=== PATIENT | female | born 1955 | race Caucasian/White ===

== ENCOUNTER 2017-01-23 16:09 | Emergency (ER) | payer MEDICARE, OTHER ==
[~2017-01-23] VITALS: Ht 157.5 cm; Wt 65.8 kg
[~2017-01-23 16:09] MED LIST: ALPR0.5T3 PO; ALPR1TAB2 PO; AMOX500C2 PO; ATEN25TA PO; CLIN300C3 PO; CRUT1EAC16 MC; CYCL10TA9 PO; DULO60CA6 PO; NITR-65 PO; ONDAN4ODT PO; PNT40TEC PO; PROM25SU10 PR; TRAM50TA2 PO
--- NOTE | 2017-01-23 17:19 | Diagnostic Imaging Report ---
Three views of the right shoulder. INDICATION: Fall. FINDINGS: No fracture, dislocation or radiopaque foreign body. Mild degenerative changes at the acromioclavicular joint with joint space narrowing seen. No significant osteophyte formation. The glenohumeral joints appear unremarkable. IMPRESSION: No acute process. Dictated by: Dictated on workstation # [id number]
--- NOTE | 2017-01-23 17:24 | ED Fall/Injury ---
General Chief Complaint: Trauma-Non Activation Stated Complaint: FALL/HEAD AND SHOULDER PAIN Nursing Triage Note: AMBULATED TO ROOM 10 WITH COMPLAINTS OF FALLING DOWN X5 STAIRS ON SUNDAY HITTING HER HEAD EACH TIME. DENIES LOC. COMPLAINS OF HEAD, NECK, AND RIGHT SHOULDER PAIN. Source: patient Exam Limitations: no limitations History of Present Illness Time seen by provider: 17:10 Initial Comments Here with report of falling down 5 stairs a few days back. Denies loss of consciousness but was dazed. Also complains of right shoulder pain. Denies other injuries. States that she didn't present then because she has been taking care of the rest of her family. Today she just wanted to make sure things were okay and her family member was also here in the ER. Complains of neck pain laterally bilaterally and stiffness. Location Injury Occurred: [facility] Occurred: last week Severity: moderate Injuries/Pain Location: head, neck Loss of Consciousness: dazed Modifying Factors: Worse With Movement, Improves With Pain Medication ( ibuprofen) Associated Symptoms (Fall): No Chest Pain, No Confusion, Headache, Muscle Spasms, No Nausea/Vomiting, Neck Pain, No Shortness of Air, No Trouble Walking, No Vision Changes Allergies and Home Medications Allergies Coded Allergies: Codeine (Unverified Allergy, 12/21/10) Home Medications Alprazolam 1 Mg Tablet, 1 MG PO TID, (Reported) Atenolol 25 Mg Tablet, 25 MG PO DAILY for 30 Days, (Reported) Cyclobenzaprine HCl 10 Mg Tablet, 10 MG PO Q8H, #15 Prescribed by: ALY DILLON on 05/16/16 1855 Cyclobenzaprine HCl 10 Mg Tablet, 10 MG PO Q8H PRN for SPASMS, #15 Ref 0 Prescribed by: CUAUHTEMOC YAN on 01/23/17 1736 Duloxetine Hcl 60 Mg Capsule.dr, 1 EACH PO DAILY, Ref 0 (Reported) Constitutional: see HPI, No chills, No fever Eyes: No Symptoms Reported Ears, Nose, Mouth, Throat: denies ear pain, nose discharge (with nasal congestion) Respiratory: no symptoms reported, No short of breath, No wheezing Cardiovascular: No chest pain Gastrointestinal: No nausea, No vomiting Musculoskeletal: see HPI, muscle pain, neck pain Skin: no symptoms reported Psychiatric/Neurological: No Symptoms Reported Past Fpnensp-Cbcbub-Nnsfme Hx Patient Social History Alcohol Use: Denies Use Recreational Drug Use: No Smoking Status: Current Everyday Smoker Recent Foreign Travel: No Contact w/Someone Who Travel: No Recent Infectious Disease Expo: No Recent Hopitalizations: No Surgeries HX Surgeries: Yes Surgeries: Appendectomy, Tubal Ligation Respiratory Hx Respiratory Disorders: No Cardiovascular Hx Cardiac Disorders: Yes Cardiac Disorders: Hypertension Neurological Hx Neurological Disorders: No Reproductive System Hx Reproductive Disorders: No Genitourinary Hx Genitourinary Disorders: No Gastrointestinal Hx Gastrointestinal Disorders: No Musculoskeletal Hx Musculoskeletal Disorders: Yes (INTERMITTENT CHRONIC NECK AND BACK PAIN ) Musculoskeletal Disorders: Chronic Back Pain Endocrine Hx Endocrine Disorders: No HEENT HX ENT Disorders: No Cancer Hx Cancer: No Psychosocial Hx Psychiatric Problems: Yes Behavioral Health Disorders: Anxiety, PTSD, Depression Integumentary HX Skin/Integumentary Disorder: No Blood Transfusions Hx Blood Disorders: No Reviewed Nursing Assessment Reviewed/Agree w Nursing PMH: Yes Physical Exam Vital Signs Vital Sign - Last 12Hours 01/23/17 16:40 Temp 98.7 Pulse 74 Resp 16 B/P (MAP) 173/101 Pulse Ox 96 O2 Delivery Room Air Capillary Refill : Less Than 3 Seconds General Appearance: WD/WN, no apparent distress HEENT: PERRL/EOMI, pharynx normal, other (moderate nasal congestion) Neck: supple, tender lateral, No tender midline Cardiovascular: regular rate, rhythm, no murmur Respiratory: lungs clear, normal breath sounds Gastrointestinal: non tender, soft Back: normal inspection, no CVA tenderness, no vertebral tenderness Extremities: non-tender, normal inspection Neurologic/Psychiatric: alert, oriented x 3 Skin: normal color, warm/dry Chelita Coma Score Best Eye Response: (4) Open Spontaneously Best Verbal Response: (5) Oriented Best Motor Response: (6) Obeys Commands Progress/Results/Core Measures Results/Orders My Orders Orders - CUAUHTEMOC YAN MD Ct Head/Cervical Spine Wo (01/23/17 16:45) Shoulder, Right, 3 Views (01/23/17 16:45) Vital Signs/I&O Vital Sign - Last 12Hours 01/23/17 01/23/17 16:40 18:35 Temp 98.7 Pulse 74 85 Resp 16 18 B/P (MAP) 173/101 Pulse Ox 96 98 O2 Delivery Room Air Blood Pressure Mean: 125 Progress Note : Progress Note Seen and evaluated. X-ray right shoulder and CT head and neck ordered. Monitor patient. Diagnostic Imaging Diagonstic Imaging: Xray Plain Films/CT/US/NM/MRI: other (shoulder) Comments VIA [facility]. [place], [place] NAME: CANDI BRUNNER [facility] REC#: [id number] PT STATUS: REG ER : 1955 PHYSICIAN: CUAUHTEMOC YAN MD ADMIT DATE: 01/23/17/ER Draft Date of Exam:01/23/17 SHOULDER, RIGHT, 3 VIEWS Three views of the right shoulder. INDICATION: Fall. FINDINGS: No fracture, dislocation or radiopaque foreign body. Mild degenerative changes at the acromioclavicular joint with joint space narrowing seen. No significant osteophyte formation. The glenohumeral joints appear unremarkable. IMPRESSION: No acute process. Dictated on workstation # [id number] Dict: 01/23/17 1707 Trans: 01/23/17 1719 MAYELA [id number] Interpreted by: ZANDER KAY MD Electronically signed by: Diagonstic Imaging: CT Plain Films/CT/US/NM/MRI: c-spine, head Comments NAME: CANDI BRUNNER [facility] REC#: [id number] PT STATUS: [facility] ER : 1955 PHYSICIAN: CUAUHTEMOC YAN MD ADMIT DATE: 01/23/17/ER Signed Date of Exam: 01/23/17 CT HEAD/CERVICAL SPINE WO PROCEDURE: CT head and CT cervical spine without contrast. TECHNIQUE: Multiple contiguous axial images were obtained through the brain and cervical spine without the use of intravenous contrast. Sagittal and coronal reformations through the cervical spine were then performed. INDICATION: Status post fall down steps. Hit posterior aspect of head and neck, now with head and neck pain. Injury one week prior. CORRELATION STUDY: CT head 06/22/2014 FINDINGS: CT HEAD: The ventricles and sulci are unremarkable. Normal perales-white differentiation. No midline shift or mass-effect. No edema pattern. No acute intracranial hemorrhage. The bony calvarium is intact. There is rather significant mucosal thickening of the bilateral maxillary sinuses, left greater than right. Mucosal thickening of the sphenoid sinuses and ethmoid air cells, as well. CT CERVICAL SPINE: Reformatted images with relatively normal alignment. Vertebral body heights are maintained. Posterior elements are intact and in normal alignment. Odontoid intact. There is a moderate asymmetric disc space narrowing at C5-C6 level. Prominent endplate spurring results and osseous narrowing in the neuroforamina. Slightly lesser severe findings at C4-C5 level, as well. Remaining disc spaces minimally narrowed but otherwise unremarkable. There is note made of incomplete closure of the posterior C1 ring, likely developmental/congenital. Well-corticated lucencies proximal lamina, bilaterally at C2, likely of no significance. Paraspinal soft tissues are unremarkable. The lung apices, likely bullous formation of the right lung apex. A few mildly prominent in number bilateral cervical lymph nodes are present. IMPRESSION: CT HEAD: 1. Negative for acute traumatic intracranial abnormality. 2. Sinusitis. CT CERVICAL SPINE: 1. Negative for acute fracture or traumatic subluxation. 2. Focal asymmetric degenerative changes at C4-C5 and C5-C6 levels. Mild endplate osteophyte formation results in encroachment on the neuroforamina. Dictated by: Dictated on workstation # [id number] Dict: 01/23/17 1807 Trans: 01/23/17 2216 Departure Impression Impression: Primary Impression: Head injury Qualified Codes: S09.90XA - Unspecified injury of head, initial encounter Additional Impression: Neck muscle strain Qualified Codes: S16.1XXA - Strain of muscle, fascia and tendon at neck level , initial encounter Disposition: 01 HOME, SELF-CARE Condition: Stable Departure-Patient Inst. Decision time for Depature: 18:09 Referrals: [facility] (PCP/Family) Primary Care Physician Patient Instructions: Minor Head Injury (DC) Add. Discharge Instructions: All discharge instructions reviewed with patient and/or family. Voiced understanding. Take medications as directed. You may take ibuprofen 800 mg every 8 hours as needed for pain. He may use Afrin nasal spray or the generic, 12 hour relief, 2 sprays to each nostril twice daily for the next 3 days only and then stop. Do not use for more than 3 days. Follow-up with your in a few days for recheck and further evaluation. Return for worse pain, fever, vomiting, weakness, breathing problems or other concerns as needed. Scripts Cyclobenzaprine HCl (Cyclobenzaprine HCl) 10 Mg Tablet 10 MG PO Q8H Y for SPASMS, #15 TAB 0 Refills Prov: CUAUHTEMOC YAN MD 01/23/17 CUAUHTEMOC YAN MD January 23, 2017 17:24
[2017-01-23] MEDS ORDERED: CYCL10TA9 PO (17:36)
--- NOTE | 2017-01-23 18:19 | Diagnostic Imaging Report ---
PROCEDURE: CT head and CT cervical spine without contrast. TECHNIQUE: Multiple contiguous axial images were obtained through the brain and cervical spine without the use of intravenous contrast. Sagittal and coronal reformations through the cervical spine were then performed. INDICATION: Status post fall down steps. Hit posterior aspect of head and neck, now with head and neck pain. Injury one week prior. CORRELATION STUDY: CT head 06/22/2014 FINDINGS: CT HEAD: The ventricles and sulci are unremarkable. Normal perales-white differentiation. No midline shift or mass-effect. No edema pattern. No acute intracranial hemorrhage. The bony calvarium is intact. There is rather significant mucosal thickening of the bilateral maxillary sinuses, left greater than right. Mucosal thickening of the sphenoid sinuses and ethmoid air cells, as well. CT CERVICAL SPINE: Reformatted images with relatively normal alignment. Vertebral body heights are maintained. Posterior elements are intact and in normal alignment. Odontoid intact. There is a moderate asymmetric disc space narrowing at C5-C6 level. Prominent endplate spurring results and osseous narrowing in the neuroforamina. Slightly lesser severe findings at C4-C5 level, as well. Remaining disc spaces minimally narrowed but otherwise unremarkable. There is note made of incomplete closure of the posterior C1 ring, likely developmental/congenital. Well-corticated lucencies proximal lamina, bilaterally at C2, likely of no significance. Paraspinal soft tissues are unremarkable. The lung apices, likely bullous formation of the right lung apex. A few mildly prominent in number bilateral cervical lymph nodes are present. IMPRESSION: CT HEAD: 1. Negative for acute traumatic intracranial abnormality. 2. Sinusitis. CT CERVICAL SPINE: 1. Negative for acute fracture or traumatic subluxation. 2. Focal asymmetric degenerative changes at C4-C5 and C5-C6 levels. Mild endplate osteophyte formation results in encroachment on the neuroforamina. Dictated by: Dictated on workstation # [id number]
[2017-01-23 18:35] VITALS: BP 137/95
== END 2017-01-23 18:35 | disposition home or self-care (01) ==
LOC: EDUNIT# 16:09 → ER 16:12
DX: S09.90XA Unspecified injury of head, initial encounter (principal); S16.1XXA Strain of muscle, fascia and tendon at neck level, initial encounter; S49.91XA Unspecified injury of right shoulder and upper arm, initial encounter; I10 Essential (primary) hypertension; F17.210 Nicotine dependence, cigarettes, uncomplicated; W10.9XXA Fall (on) (from) unspecified stairs and steps, initial encounter; Z79.899 Other long term (current) drug therapy; Y99.8 Other external cause status; Y92.009 Unspecified place in unspecified non-institutional (private) residence as the place of occurrence of the external cause
CPT/HCPCS: 70450; 72125; 73030; 99282

== ENCOUNTER 2018-08-18 19:17 | Emergency (ER) | payer MEDICARE, OTHER ==
[~2018-08-18] VITALS: Ht 157.5 cm; Wt 65.8 kg
[2018-08-18] MEDS ORDERED: DEXTROSE 50% 50 ML (IMS) SYR INJ ONE (19:19)
[2018-08-18] MEDS ORDERED: EPINEPHrine 0.1 MG/ML 10 ML (HOSPIRA) SYR IJ ONE (19:19)
[2018-08-18] MEDS ORDERED: NS 1000 ML IV BAG IV ONE (19:19)
[2018-08-18] MEDS ORDERED: NS IV 1000 ML 0 ML ONE (19:31)
[2018-08-18] MEDS ORDERED: NS (IVPB) 250 ML ONE (19:34)
[2018-08-18] MEDS ORDERED: EPINEPHrine (OMNICELL DRIP KIT ONLY) 1 MG/ML AMP ONE (19:34)
[2018-08-18] MEDS ORDERED: EPINEPHrine INJECTION 1 MG/ML AMP ONE (19:38)
--- NOTE | 2018-08-18 20:51 | ED CPR ---
HPI-CPR General Chief Complaint: Code Blue Stated Complaint: UNRESPONSIVE Source of Information: Patient, EMS, Family Exam Limitations: Physical Impairments (Orotracheally intubated) History of Present Illness Date Seen by Provider: Aug 18, 2018 Time Seen by Provider: 19:16 Initial Comments Patient presents to ER by EMS with chief complaint of witnessed collapse and cardiac arrest. She was walking [place] [facility] when she collapsed just outside of the front doors to the ground and at 1845 the page went out from dispatch and at 1848 EMS arrived to witness the lawn mower operator were doing chest compressions for about 3-5 minutes prior to their arrival. They had asystole and were unable to get an IV in 2 different sites of a put an IO in the left anterior tibial plateau. They have started getting first liter of saline as well as for epinephrine doses and bicarbonate as well. They never got return of spontaneous circulation. She had a blood sugar of 96. The only history they got was that she had anxiety, smoking, hypertension from the daughter who is present at the scene. Unknown heart history. The entire time the patient was in asystole. Allergies and Home Medications Allergies Coded Allergies: Codeine (Unverified Allergy, 12/21/10) Home Medications Alprazolam 1 Mg Tablet, 1 MG PO TID, (Reported) Atenolol 25 Mg Tablet, 25 MG PO DAILY, (Reported) Cyclobenzaprine HCl 10 Mg Tablet, 10 MG PO Q8H Prescribed by: ALY DILLON on 05/16/16 1855 Cyclobenzaprine HCl 10 Mg Tablet, 10 MG PO Q8H PRN for SPASMS Prescribed by: CUAUHTEMOC YAN on 01/23/17 1736 Duloxetine Hcl 60 Mg Capsule., 1 EACH PO DAILY, (Reported) Patient Home Medication List Home Medication List Reviewed: Yes Review of Systems Review of Systems Constitutional: see HPI (2 get a good review of systems from the patient and her to orotracheal intubation but per family she had corcoran negative review of systems prior to this); No chills, No diaphoresis EENTM: No Blurred Vision, No Double Vision Respiratory: Denies Cough, Denies Shortness of Air Cardiovascular: Denies Chest Pain, Denies Lightheadedness Gastrointestinal: Denies Constipated, Denies Diarrhea, Denies Nausea Genitourinary: Denies Discharge, Denies Drainage Musculoskeletal: No back pain, No joint pain Skin: No pruritus, No rash Psychiatric/Neurological: Denies Headache, Denies Numbness Past Vtgcvea-Jxppur-Hztyuc Hx Patient Social History Recreational Drug Use: No Smoking Status: Current Everyday Smoker Type Used: Cigarettes Recent Foreign Travel: No Contact w/Someone Who Travel: No Recent Hopitalizations: No Past Medical History Surgeries: Yes Appendectomy, Tubal Ligation Respiratory: No Cardiac: Yes Hypertension Neurological: No Reproductive Disorders: No Genitourinary: No Gastrointestinal: No Musculoskeletal: Yes (INTERMITTENT CHRONIC NECK AND BACK PAIN ) Chronic Back Pain Endocrine: No Cancer: No Psychosocial: Yes Anxiety, PTSD, Depression Integumentary: No Blood Disorders: No Physical Exam Vital Signs Capillary Refill : Height, Weight, BMI Height: 5'2.00" Weight: 145lbs. oz. 65.838180pu; BMI Method:Stated General Appearance: Chronically ill, Severe Distress HEENT: Other (7.5 ET tube at 22 cm at the teeth, cyanotic lips) Neck: Normal Inspection, Supple Respiratory: Lungs Clear, Normal Breath Sounds, Respiratory Distress (Acute respiratory failure with orotracheal intubation and bag valve mask ventilation) Cardiovascular: No Edema, Other (No heart tones or palpable pulse) Gastrointestinal: Soft; No Distended Extremity: Normal Inspection, Slow Capillary Refill Progress/Results/Core Measures Results/Orders My Orders Orders - YOHAN GARCIA Ns Iv 1000 Ml (Sodium Chloride 0.9%) (08/18/18 19:31) Epinephrine (Omnicell Drip Kit (Epinephr (08/18/18 19:34) Ns (Ivpb) (Sodium Chloride 0.9%) (08/18/18 19:34) Epinephrine 1 Mg Injection (Adrenalin I (08/18/18 19:38) Critical Care Note Critical Care Start Time: 19:15 Stop Time: 19:42 Total Time (minutes) 22 mins Date of : Aug 18, 2018 Time of : 19:42 Progress IV access was attempted again and a milligram of epinephrine was given through the IO and CPR continued. We gave an amp of D50. When time came up to do a pulse check there was no discernible pulse or heart tones. We resumed Chest compressions and had obtained IV access and the right antecubital space at that point gave her a milligram of epinephrine and circulated that. At the next pulse check we had a heart rate that was faint dopplerable femoral pulse and a blood pressure 110 systolic. As we were getting the IV epinephrine set up to be given the heart tones dropped off rather quickly within the next 2 minutes to the 60s and blood pressure was dropping down into the 60-80 systolic range. Milligram of epinephrine was pushed through the intraosseous as the right antecubital space had failed. Blood work was obtained from a IV in the left forearm. The milligram of epinephrine must not circulated very well because she resumed no pulse asystole. We resumed chest compressions per nursing notes. We gave another several rounds of epinephrine and CPR had a discussion with the family that at this point it and it has been over 45 minutes and approaching an hour with asystole and very little hope of regaining any meaningful neurologic recovery. The daughter Luh agreed that at this time we should allow her mom to naturally. We discontinued our efforts and the patient still had no dopplerable pulses, heart tones auscultated or spontaneous breath movements. Her limbs were cold, cyanotic and unable to obtain a good oxygen saturation. Time of was 1941. Discussed the case with Mr. Lopez who talked to Dr. MCQUEEN the blue print control clerk and there going to release the body to [place] ski patrol director per the family wishes. We are waiting to hear back from the [facility] organ donor team. Departure Impression Primary Impression: Cardiac arrest Additional Impression: Disposition: 20 Condition: Departure-Patient Inst. Referrals: [facility] [place]) Primary Care Physician Copy Copies To 1: ADINA HARVEY TITUS J Aug 18, 2018 20:51
[2018-08-18 23:20] LABS: BASOPHILS # (AUTO) 0.1 10^3/uL (0.0-0.1); BASOPHILS % (AUTO) 0 % (0-10); EOSINOPHILS % (AUTO) 0 % (0-10); HEMATOCRIT 27 % (35-52); HEMOGLOBIN 8.5 G/DL (11.5-16.0); LYMPHOCYTES # (AUTO) 9.4 X 10^3 (1.0-4.0); LYMPHOCYTES % (AUTO) 77 % (12-44); MEAN CORPUSCULAR HEMOGLOBIN 33 PG (25-34); MEAN CORPUSCULAR HGB CONC 32 G/DL (32-36); MEAN CORPUSCULAR VOLUME 103 FL (80-99); MEAN PLATELET VOLUME 11.1 FL (7.4-10.4); MONOCYTES # (AUTO) 0.4 X 10^3 (0.0-1.0); MONOCYTES % (AUTO) 3 % (0-12); NEUTROPHILS # (AUTO) 2.3 X 10^3 (1.8-7.8); NEUTROPHILS % (AUTO) 19 % (42-75); PLATELET COUNT 176 10^3/uL (130-400); RED BLOOD COUNT 2.57 10^6/uL (4.35-5.85); RED CELL DISTRIBUTION WIDTH 11.7 % (10.0-14.5); WHITE BLOOD COUNT 12.2 10^3/uL (4.3-11.0)
[2018-08-18 23:44] LABS: CREATININE SERUM 0.99 MG/DL (0.60-1.30); POTASSIUM 2.8 MMOL/L (3.6-5.0)
[2018-08-18 23:45] LABS: ALBUMIN 1.7 GM/DL (3.2-4.5); BILIRUBIN,TOTAL 0.2 MG/DL (0.1-1.0); CALCIUM 6.9 MG/DL (8.5-10.1); TOTAL PROTEIN 3.4 GM/DL (6.4-8.2)
[2018-08-19 01:00] VITALS: BP 0/0
== END 2018-08-19 01:00 | disposition expired ==
LOC: EDUNIT# 19:17 → ER 19:18
DX: I46.9 Cardiac arrest, cause unspecified (principal); I10 Essential (primary) hypertension; F41.9 Anxiety disorder, unspecified; F43.10 Post-traumatic stress disorder, unspecified; F32.9 Major depressive disorder, single episode, unspecified; F17.210 Nicotine dependence, cigarettes, uncomplicated; Z90.49 Acquired absence of other specified parts of digestive tract; Z98.51 Tubal ligation status; Z88.5 Allergy status to narcotic agent
CPT/HCPCS: 36415; 80053; 83880; 84484; 85025; 92950; 96360; 99291